=== PATIENT | female | born 2000 | race Caucasian/White ===

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

== ENCOUNTER 2019-09-06 11:26 | Emergency (ER) | payer OTHER ==
[2019-09-06 11:47] VITALS: BP 109/68
--- NOTE | 2019-09-06 11:54 | UC ---
Throat Pain/Nasal Devan HPI - HPI Summary HPI Summary: 3 days of sore throat and cough. Had same thing af ew wks ago but it has now returned. denies fever or sob. - History of Current Complaint Chief Complaint: UCGeneralIllness Stated Complaint: SORE THROAT AND CONGSETION Time Seen by Provider: 09/06/19 11:50 Hx Obtained From: Patient Hx Last Menstrual Period: 08/15/2019 Pain Intensity: 4 Pain Scale Used: 0-10 Numeric Cough: Nonproductive Associated Signs & Symptoms: Positive: Sinus Discomfort. Negative: Dysphagia, FB Sensation, Drooling, Hoarseness, Fever, Vomiting, Rash - Allergies/Home Medications Allergies/Adverse Reactions: Allergies Allergy/AdvReac Type Severity Reaction Status Date / Time cefprozil [From Cefzil] Allergy See Comment Verified 09/06/19 11:48 Sulfa (Sulfonamide Allergy See Comment Verified 09/06/19 11:48 Antibiotics) PMH/Surg Hx/FS Hx/Imm Hx - Additional Past Medical History Additional PMH: no chronic illness Previously Healthy: Yes - Surgical History Surgical History: Yes Surgery Procedure, Year, and Place: TONSILLECTOMY - Family History Known Family History: Positive: Hypertension Negative: Cardiac Disease, Diabetes - Social History Alcohol Use: Weekly Substance Use Type: None Smoking Status (MU): Never Smoked Tobacco - Immunization History Most Recent Influenza Vaccination: not this year Most Recent Tetanus Shot: UTD Most Recent Pneumonia Vaccination: no Review of Systems All Other Systems Reviewed And Are Negative: Yes Constitutional: Negative: Fever, Chills, Fatigue Skin: Negative: Rash ENT: Positive: Sore Throat, Sinus Congestion. Negative: Ear Ache, Sinus Pain/ Tenderness Respiratory: Positive: Cough Cardiovascular: Negative: Chest Pain Neurological: Negative: Headache Physical Exam Triage Information Reviewed: Yes Appearance: Well-Appearing Vital Signs: Initial Vital Signs Temp 98.1 F 09/06/19 11:42 Pulse 76 09/06/19 11:42 Resp 16 09/06/19 11:42 BP 109/68 09/06/19 11:42 Pulse Ox 98 09/06/19 11:42 Vital Signs Reviewed: Yes Eyes: Positive: Conjunctiva Clear ENT: Positive: Pharynx normal, TMs normal, Uvula midline Neck: Positive: Supple, Nontender, No Lymphadenopathy Respiratory: Positive: Lungs clear, No accessory muscle use. Negative: Crackles , Rhonchi, Stridor, Wheezing Cardiovascular Exam: Normal Neurological: Positive: Alert Skin: Negative: Rashes Throat Pain/Nasal Course/Dx - Course Course Of Treatment: Cough and Sore throat x3days w/ no reports of fever. rapid strep is neg and vitals are good. exam was unremarkable. viral etiology. discussed ways to manage symptoms including rest and increased fluids. - Differential Dx/Diagnosis Differential Diagnosis/HQI/PQRI: Pharyngitis, Sinusitis, URI Provider Diagnosis: URI (upper respiratory infection) Discharge ED - Sign-Out/Discharge Documenting (check all that apply): Patient Departure All imaging exams completed and their final reports reviewed: No Studies - Discharge Plan Condition: Good Disposition: HOME Patient Education Materials: Pharyngitis (ED) Referrals: No Primary Care Phys,NOPCP [Primary Care Provider] - Additional Instructions: Your symptoms are likely caused from a virus. We do not have medications to make this virus go away but I encourage increased fluids - Billing Disposition and Condition Condition: GOOD Disposition: Home
== END 2019-09-06 12:25 | disposition home or self-care (01) ==
LOC: UCEAST 11:26
DX: J06.9 Acute upper respiratory infection, unspecified (principal); Z88.1 Allergy status to other antibiotic agents; Z88.2 Allergy status to sulfonamides
CPT/HCPCS: 87651; 99211; G0463

== ENCOUNTER 2019-09-08 20:46 | Emergency (ER) | payer OTHER ==
[2019-09-08 20:59] VITALS: BP 125/76
[2019-09-08] MEDS ORDERED: Amoxicillin PO (*) 500 MG CAP PO ONE ×2 (21:11→21:12)
--- NOTE | 2019-09-08 21:11 | UC ---
Throat Pain/Nasal Devan HPI - HPI Summary HPI Summary: 19-year-old female comes in with a chief complaint of upper respiratory tract infection symptoms. Symptoms been going on for about 5 days. She has rhinorrhea sore throat. Also has a cough that makes her throat hurt more. Swallowing also makes her throat hurt more. She's been using [id number] medications which do so with the symptoms. She's got mild fatigue. She's had mononucleosis before she feels like this is not mononucleosis. - History of Current Complaint Chief Complaint: UCRespiratory Stated Complaint: THROAT PAIN, VIRAL FROM 2 DAYS AGO HERE Time Seen by Provider: 09/08/19 20:54 Hx Last Menstrual Period: 08/15/2019 Pain Intensity: 7 - Allergies/Home Medications Allergies/Adverse Reactions: Allergies Allergy/AdvReac Type Severity Reaction Status Date / Time cefprozil [From Cefzil] Allergy See Comment Verified 09/08/19 21:00 Sulfa (Sulfonamide Allergy See Comment Verified 09/08/19 21:00 Antibiotics) PMH/Surg Hx/FS Hx/Imm Hx Previously Healthy: Yes - Surgical History Surgical History: Yes Surgery Procedure, Year, and Place: TONSILLECTOMY - Family History Known Family History: Positive: Hypertension Negative: Cardiac Disease, Diabetes - Social History Alcohol Use: Weekly Substance Use Type: None Smoking Status (MU): Never Smoked Tobacco - Immunization History Most Recent Influenza Vaccination: not this year Most Recent Tetanus Shot: UTD Most Recent Pneumonia Vaccination: no Review of Systems All Other Systems Reviewed And Are Negative: Yes Constitutional: Positive: Other - see hpi Skin: Positive: Negative Eyes: Positive: Negative ENT: Positive: Sore Throat, Nasal Discharge, Sinus Congestion, Sinus Pain/ Tenderness Respiratory: Positive: Cough Cardiovascular: Positive: Negative Gastrointestinal: Positive: Negative Motor: Positive: Negative Neurovascular: Positive: Negative Musculoskeletal: Positive: Negative Neurological: Positive: Negative Psychological: Positive: Negative Is Patient Immunocompromised?: No Physical Exam Triage Information Reviewed: Yes Appearance: No Pain Distress, Well-Nourished, Ill-Appearing - mild Vital Signs: Initial Vital Signs Temp 98.8 F 09/08/19 20:55 Pulse 101 09/08/19 20:55 Resp 16 09/08/19 20:55 BP 125/76 09/08/19 20:55 Pulse Ox 99 10/14/19 20:55 Vital Signs Reviewed: Yes Eye Exam: Normal Eyes: Positive: Conjunctiva Clear ENT: Positive: Pharyngeal erythema, Nasal congestion, Nasal drainage, TMs normal , Uvula midline. Negative: Muffled voice, Hoarse voice Neck: Positive: Supple Respiratory: Positive: Lungs clear, Normal breath sounds, No respiratory distress Cardiovascular: Positive: RRR Musculoskeletal: Positive: Strength Intact, ROM Intact Neurological: Positive: Alert Psychological: Positive: Age Appropriate Behavior Skin Exam: Normal Throat Pain/Nasal Course/Dx - Course Course Of Treatment: DISCUSSED VIRAL VERSES BACTERIAL INFECTIONS AND THE ROLE OF ANTIBIOTICS. THE PATIENT PREFERS TO BE ON ANTIBIOTICS AT THIS TIME. - Differential Dx/Diagnosis Provider Diagnosis: Upper respiratory infection, Pharyngitis Discharge ED - Sign-Out/Discharge Documenting (check all that apply): Patient Departure All imaging exams completed and their final reports reviewed: No Studies - Discharge Plan Condition: Stable Disposition: HOME Prescriptions: Amoxicillin PO (*) [Amoxicillin 875 MG (*)] 875 mg PO BID #18 tab Patient Education Materials: Upper Respiratory Infection (ED), Pharyngitis (ED) Referrals: [facility] @ [Outside] Additional Instructions: FOLLOW UP WITH YOUR DOCTOR IF NOT COMPLETELY IMPROVED. GET RECHECKED SOONER IF YOUR CONDITION WORSENS OR ANY QUESTIONS OR CONCERNS. - Billing Disposition and Condition Condition: STABLE Disposition: Home
== END 2019-09-08 21:26 | disposition home or self-care (01) ==
LOC: UCEAST 20:46
DX: J06.9 Acute upper respiratory infection, unspecified (principal); J02.9 Acute pharyngitis, unspecified; Z88.1 Allergy status to other antibiotic agents; Z88.2 Allergy status to sulfonamides
CPT/HCPCS: 87651; 99212; A9270-GY; G0463

== ENCOUNTER 2019-12-20 23:19 | Emergency (ER) | payer OTHER ==
[2019-12-20] MEDS ORDERED: Ibuprofen TAB* 400 MG PO ONE (23:49)
--- NOTE | 2019-12-20 23:50 | ED ---
Head Injury - HPI Summary HPI Summary: This patient is a 19 year old F presenting to [facility] accompanied by friend with a chief complaint of head pain since . Pt was walking on an icy path when she slipped and fell backwards hitting her head on the grass. Pt did not lose consciousness. Pt had a HARDING that began in the back of her head and has moved to the front. Immediately after hitting head she felt pain in her sinuses , and some nausea and dizziness, but those symptoms have resolved. Pt also reports neck pain.Pt drank one standard drink. She does not take any medication , no FHx, no smoking or drugs. Pt has had her tonsils and adenoids removed, and her last menstrual period was on Dec 04, 2019. Per triage, the patient rates the pain 5/10 in severity. - History Of Current Complaint Chief Complaint: EDHeadInjury Stated Complaint: FELL/HIT BACK OF HEAD PER PT Time Seen by Provider: 12/20/19 23:31 Hx Obtained From: Patient Hx Last Menstrual Period: 12/04/2019 Mechanism Of Injury: Direct Blow, Fall From A Standing Position Onset/Duration: Started Hours Ago, Still Present Onset of Pain: Immediate, Post Accident Severity Currently: Moderate Pain Intensity: 5 Pain Scale Used: 0-10 Numeric Location of Head Injury: Diffuse Associated Signs And Symptoms: Neck Pain, Headache - Allergies/Home Medications Allergies/Adverse Reactions: Allergies Allergy/AdvReac Type Severity Reaction Status Date / Time cefprozil [From Cefzil] Allergy See Comment Verified 12/20/19 23:21 Sulfa (Sulfonamide Allergy See Comment Verified 12/20/19 23:21 Antibiotics) PMH/Surg Hx/FS Hx/Imm Hx Endocrine/Hematology History: Reports: Hx Thyroid Disease Denies: Hx Anticoagulant Therapy Sensory History: Denies: Hx Legally Blind EENT History: Denies: Hx Deafness - Surgical History Surgery Procedure, Year, and Place: TONSILLECTOMY - Immunization History Date of Influenza Vaccine: none Infectious Disease History: No Infectious Disease History: Denies: Traveled Outside the [place] in Last 30 Days - Family History Known Family History: Positive: Hypertension Negative: Cardiac Disease, Diabetes - Social History Occupation: Student Lives: Dormitory/Roommates Alcohol Use: Weekly Substance Use Type: Reports: None Smoking Status (MU): Never Smoked Tobacco - Additional Comments History Additional Comments: PHx : Thyroid Disease Home Medications Medication Instructions Recorded Confirmed Type Amoxicillin PO (*) [Amoxicillin 875 mg PO BID #18 tab 09/08/19 Rx 875 MG (*)] Review of Systems Positive: Other - sinus pain Positive: Nausea. Negative: Vomiting Positive: Other - neck pain Neurological: Other - dizziness Positive: Headache All Other Systems Reviewed And Are Negative: Yes Physical Exam - Summary Physical Exam Summary: General: Well-developed, Well-nourished female. No acute distress. HEENT: Normocephalic, Atraumatic. Eyes: Conjuctiva normal, PERRL. Oropharynx: Clear, mucous membranes moist, (-) exudates. Neck: Soft, FROM, (-) lymphadenopathy, (-) thyromegaly, (-) JVD. Cardiovascular: Normal sinus rhythm, (-) murmur. Lungs: Clear to auscultation bilaterally (-) wheezes, (-) rales, (-) rhonchi. Abdomen: Soft, non-tender, non-distended, (-) organomegaly, normal bowel sounds. Back: (-) CVA tenderness Extremities: No edema. Skin: Warm, dry, (-) rash. Neuro: Alert and oriented x3,move all extremities equally. No ataxia. No gait disturbance. No sensory deficit. No amnesia. Psychiatric: Mood normal, affect normal. Triage Information Reviewed: Yes Vital Signs On Initial Exam: Initial Vitals Temp Pulse Resp BP Pulse Ox 96.4 F 80 15 116/93 98 12/20/19 23:19 12/20/19 23:19 12/20/19 23:19 12/20/19 23:19 12/20/19 23:19 Vital Signs Reviewed: Yes - [place] Coma Scale Best Eye Response: 4 - Spontaneous Best Motor Response: 6 - Obeys Commands Best Verbal Response: 5 - Oriented Coma Scale Total: 15 Procedures - Sedation Patient Received Moderate/Deep Sedation with Procedure: No Diagnostics - Vital Signs Vital Signs Temp Pulse Resp BP Pulse Ox 12/20/19 23:19 96.4 F 80 15 116/93 98 - Laboratory Lab Statement: Any lab studies that have been ordered have been reviewed, and results considered in the medical decision making process. Re-Evaluation - Re-Evaluation First Eval Re-Evaluation Time: 00:32 Comment: Improvement with ibuprofen upon re-eval. Discussed symptoms that warrant immediate return to ED Head Injury Course/Dx Course Of Treatment: 19 year old F presenting with head trauma after fall. No LOC. No obvious injury. Minimal HARDING and muscular discomfort of head, neck and shoulders. Given ibuprofen. Physical exam within normal limits. GCS 15. Craig initial symptoms of blurry vision, gait instability, and nausea have all resolved at this time. [facility] is at low risk for intracranial hemorrhage or abnormality, therefore a CT of the head was not performed. - Diagnoses Provider Diagnoses: Head trauma, Fall Discharge ED - Sign-Out/Discharge Documenting (check all that apply): Patient Departure - Discharge - Discharge Plan Condition: Stable Disposition: HOME Patient Education Materials: Head Injury (ED) Referrals: [facility] [Outside] Additional Instructions: Please follow up with your primary care physician within three days. Please return to ED for any new or worsening symptoms. - Billing Disposition and Condition Condition: STABLE Disposition: Home - Attestation Statements Document Initiated by Scribe: Yes Documenting Scribe: Kat Lo Provider For Whom Vincent is Documenting (Include Credential): Dr. Katie Lawson MD Scribe Attestation: Kat Velazquez scribed for Dr. Katie Lawson MD on 12/21/19 at 0134. Scribe Documentation Reviewed: Yes Provider Attestation: The documentation as recorded by the aKt haney accurately reflects the service I personally performed and the decisions made by , Dr. Katie Lawson MD Status of Scribe Document: Viewed
[2019-12-21 00:46] VITALS: BP 124/74
== END 2019-12-21 00:46 | disposition home or self-care (01) ==
LOC: ED 23:19
DX: S09.90XA Unspecified injury of head, initial encounter (principal); W00.0XXA Fall on same level due to ice and snow, initial encounter; Y93.01 Activity, walking, marching and hiking; Y92.9 Unspecified place or not applicable; Z88.1 Allergy status to other antibiotic agents; Z88.2 Allergy status to sulfonamides
CPT/HCPCS: 99282; A9270-GY